=== PATIENT | female | born 1995 ===

== ENCOUNTER 2021-02-16 08:45 | Inpatient (IN) | payer OTHER ==
[~2021-02-16] VITALS: Ht 172.7 cm; Wt 98.0 kg
== END 2021-02-23 18:09 | disposition home or self-care (01) | DRG 788 ==
LOC: OB/GYN 02-20 05:54 → O/R 02-20 05:54 → OB/GYN 02-20 07:00
PROVIDERS: ADMIT Obstetrics & Gynecology; ATTEND Obstetrics & Gynecology
PROC: 4A1HXFZ Monitoring of Products of Conception, Cardiac Rhythm, External Approach (ICD-10-PCS; 2021-02-20)
PROC: 10D00Z1 Extraction of Products of Conception, Low, Open Approach (ICD-10-PCS; principal; 2021-02-20 07:00)
DX: O65.5 Obstructed labor due to abnormality of maternal pelvic organs (principal); O34.211 Maternal care for low transverse scar from previous cesarean delivery; O99.824 Streptococcus B carrier state complicating childbirth; Z3A.39 39 weeks gestation of pregnancy; Z37.0 Single live birth; Z20.822 Contact with and (suspected) exposure to COVID-19